=== PATIENT | female | born 1950 | race African-American/Black ===

== ENCOUNTER 2018-09-20 08:07 | Emergency (ER) | payer SELFPAY ==
[~2018-09-20] VITALS: Ht 170.2 cm; Wt 122.0 kg
[2018-09-20 08:18] VITALS: BP 177/97
== END 2018-09-20 09:23 | disposition home or self-care (01) ==
LOC: ER 08:42
DX: R13.10 Dysphagia, unspecified (principal); Z87.891 Personal history of nicotine dependence
CPT/HCPCS: 99282